=== PATIENT | female | born 1960 | race Caucasian/White ===

== ENCOUNTER 2016-08-21 21:54 | Emergency (ER) | payer OTHER ==
[2016-08-21 21:58] VITALS: BP 113/74
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
== END 2016-08-21 22:45 | disposition home or self-care (01) ==
LOC: CC.ED 21:54
DX: S70.12XA Contusion of left thigh, initial encounter (principal); V29.9XXA Motorcycle rider (driver) (passenger) injured in unspecified traffic accident, initial encounter
CPT/HCPCS: 99283